=== PATIENT | male | born 1980 | race Caucasian/White ===

== ENCOUNTER 2023-02-02 05:27 | Emergency (ER) | payer OTHER, SELFPAY ==
--- NOTE | ~2023-02-02 | CT_ITS ---
Non-contrast Head CT History: Headache Technique: Axial non-contrast imaging of the brain was performed. Dose reduction technique was used on this scan by utilizing automated exposure control and iterative reconstruction technique. The dose -length product (DLP) was 605.33 mGy-cm. Findings: There is no evidence of intracranial hemorrhage, mass lesion, or acute infarct. Brain par enchyma appears normal. The ventricles and subarachnoid spaces are normal in size. The calvarium ap pears normal. The visualized paranasal sinuses and mastoid air cells are clear. Impression: No significant abnormality seen. Reviewed, dictated and finalized at location . Impression: No significant abnormality seen.
[2023-02-02 05:28] VITALS: BP 172/89; PULSE 71; RESP 16; TEMP 36.7; O2SAT 100
--- NOTE | 2023-02-02 07:31 | ED.HA ---
HPI - Headache General Chief Complaint: Headache Stated Complaint: headahce Time Seen by Provider: 02/02/23 07:31 Source: patient Mode of arrival: ambulatory Limitations: no limitations History of Present Illness HPI Narrative: Patient wake up with migraine headache, throbbing pain behind right eye, similar to his previous episodes of headache, dropped off by one of his friends, headache associated with nausea, no fever. Patient is healthy otherwise, does not take medicine at home, does not smoke or drink or uses drugs, quite a bit of stress lately. He denies any focal neurodeficit. Related Data Allergies Allergy/AdvReac Type Severity Reaction Status Date / Time No Known Allergies Allergy Verified 02/02/23 06:23 Review of Systems Review of Systems: All systems reviewed & are unremarkable except as noted in HPI and below Exam Narrative: General appearance: Well-developed, well-nourished Skin: Normal color Head: Normocephalic, nontraumatic Eyes: Clear conjunctiva ENT: Oropharynx normal, ears normal, nose normal Neck: Supple, nontender Chest and respiratory: Airway patent, no respiratory distress, no accessory muscle use Heart: Regular rate/rhythm Abdomen: Soft, nontender, no organomegaly, quiet bowel sounds Vascular: Normal peripheral pulses, normal capillary refill. Musculoskeletal: Normal range of motion, nontender back Neurologic: Alert and oriented ?3, SENIOR PROJECT COORDINATOR is normal as tested, no gross motor deficit Course Reevaluation(s) Reevaluation #1: Feeling much better after IV fluid and IV Toradol. Date: 02/02/23 Time: 08:19 Vital Signs Vital signs: Vital Signs Temperature 36.7 C 02/02/23 05:28 Pulse Rate 71 02/02/23 05:28 Respiratory Rate 16 02/02/23 05:28 Blood Pressure 172/89 H 02/02/23 05:28 Pulse Oximetry 100 02/02/23 05:28 Oxygen Delivery Room Air 02/02/23 05:28 Temperature 36.7 C 02/02/23 05:28 Pulse Rate 71 02/02/23 05:28 Respiratory Rate 16 02/02/23 05:28 Blood Pressure 172/89 H 02/02/23 05:28 Pulse Oximetry 100 02/02/23 05:28 Oxygen Delivery Room Air 02/02/23 05:28 MDM - Headache MDM Narrative Medical decision making narrative: Patient presents with another episodes of migraine headache. This 1 is more intense than usual. Differential diagnosis, migraine headache, tension headache. Work-up today include CT head which showed no acute abnormalities In the ED patient received 1 L of normal saline, 30 mg of Toradol, 4 mg of Zofran, 50 mg of Benadryl and 10 mg of Reglan with mild improvement, 1 mg Ativan IV given with remarkable improvement. Diagnosis of headache of unknown etiology is my concern. Differential Diagnosis Differential diagnosis: Likely migraine, tension headache and headache Imaging Data Radiologist's impression: Impressions Head CT 02/02/23 08:29 Impression: No significant abnormality seen. Critical Care Time Critical Care Time Critical Care Time: Yes Total Critical Care Time: 30 Discharge Plan Discharge Clinical Impression: Headache Qualifiers: Headache type: unspecified Headache chronicity pattern: unspecified pattern Intractability: not intractable Qualified Code(s): R51.9 - Headache, unspecified Patient Disposition: Home, Self-Care Condition: Improved Instructions: Acute Headache (ED) Additional Instructions: Return if symptoms are worsening , call your family physician for appointment, take Tylenol as as needed for aches and pain, continue home medications. Follow-up/Referrals: PHYSICIAN,TRADE SHOW SPECIALIST [Primary Care Provider] - Mateo Thompson MD [Physician] - 02/05/23
[2023-02-02] MEDS: SODIUM CHLORIDE 0.9% IV 1,000 ML 999 ML IV CONT (07:52)
[2023-02-02] MEDS: ONDANSETRON INJ 4 MG/2 ML VIAL IV PUSH (07:52)
[2023-02-02] MEDS: METOCLOPRAMIDE HCL INJ 10 MG/2 ML VIAL IV PUSH (08:29)
[2023-02-02] MEDS: diphenhydrAMINE HCl INJ 50 MG/ML VIAL IV PUSH (08:29)
[2023-02-02] MEDS: KETOROLAC 30 MG/ML VIAL (*BKC) IV PUSH (08:29)
[2023-02-02] MEDS: LORazepam INJ (*CRX) 2 MG/ML VIAL 1 MG IV PUSH (09:42)
== END 2023-02-02 10:03 | disposition home or self-care (01) ==
PROVIDERS: Emergency Provider Emergency Medicine
DX: R51.9 Headache, unspecified (principal)
CPT/HCPCS: 70450; 96361; 96374; 96375; 99284; J1200; J1885; J2060; J2405; J2765; J7030